=== PATIENT | male | born 1975 | race Caucasian/White ===

== ENCOUNTER 2018-06-16 08:21 | Emergency (ER) | payer MEDICAID, OTHER, SELFPAY ==
[2018-06-16] MEDS: ASPIRIN 81 MG CHEW TABLET PO (08:45)
[2018-06-16] MEDS: NITROGLYCERIN 0.4 MG SUBL TABLET SL (08:50)
[2018-06-16] MEDS: ALBUTEROL SULFATE 2.5 MG/0.5 ML INH NEB SOLN INH ×4 (09:01→11:37)
[2018-06-16 09:35] LABS: VENOUS BASE EXCESS -2.8 (-2.0-2.0); VENOUS O2 SATURATION 83.6 % (60.0-80.0); VENOUS PARTIAL PRESSURE CO2 48.7 mmHg (38.0-50.0); VENOUS PH 7.311 UNITS (7.330-7.430); VENOUS STANDARD HCO3 21.8 MEQ/L; VENOUS TOTAL CO2 25.5 MEQ/L (24.0-28.0)
[2018-06-16 09:43] LABS: BASO # 0.1 10^3/uL (0.0-0.2); BASO % 0.9 % (0.0-1.0); EOS # 0.5 10^3/uL (0.0-0.50); EOS % 4.2 % (0.0-3.0); HEMATOCRIT 49.3 % (42.0-52.0); HEMOGLOBIN 17.1 g/dl (13.5-17.5); IMMATURE GRANULOCYTE % 0.6 % (0-3.0); LYMPH # 2.3 10^3/uL (1.5-4.5); LYMPH % 19.7 % (24.0-44.0); MEAN CORPUSCULAR HEMOGLOBIN 30.7 pg (27.0-33.0); MEAN CORPUSCULAR HGB CONC 34.7 g/dl (32.0-36.5); MEAN CORPUSCULAR VOLUME 88.5 fl (80.0-96.0); MONO # 0.7 10^3/uL (0.0-0.8); MONO % 6.2 % (0.0-5.0); NEUTROPHILS # 7.9 10^3/uL (1.8-7.7); NEUTROPHILS % 68.4 % (36.0-66.0); PLATELET COUNT, AUTOMATED 389 10^3/uL (150-450); RED BLOOD COUNT 5.57 10^6/uL (4.30-6.10); RED CELL DISTRIBUTION WIDTH 12.9 % (11.5-14.5); WHITE BLOOD COUNT 11.5 10^3/uL (4.0-10.0)
[2018-06-16] MEDS: LABETALOL HCL 100 MG/20 ML VIAL IV (10:15)
[2018-06-16 11:10] LABS: INR 0.89; PROTHROMBIN TIME 12.1 SECONDS (12.1-14.4)
[2018-06-16] MEDS: TUSSICAPS ER 10/8MG CAPSULE PO (11:18)
[2018-06-16 11:41] LABS: ALBUMIN 3.9 GM/DL (3.2-5.2); ALBUMIN/GLOBULIN RATIO 1.05 (1.00-1.93); ALKALINE PHOSPHATASE 56 U/L (45-117); ALT/SGPT 25 U/L (12-78); ANION GAP 7 MEQ/L (8-16); AST/SGOT 19 U/L (7-37); BILIRUBIN,DIRECT < 0.1 MG/DL (0.0-0.2); BILIRUBIN,TOTAL 0.3 MG/DL (0.2-1.0); BLOOD UREA NITROGEN 15 MG/DL (7-18); CARBON DIOXIDE LEVEL 25 MEQ/L (21-32); CHLORIDE LEVEL 107 MEQ/L (98-107); CPK CREATINE PHOSPHOKINASE 223 U/L (39-308); CREATININE FOR GFR 1.09 MG/DL (0.70-1.30); GLOMERULAR FILTRATION RATE > 60.0 (>60); GLUCOSE, FASTING 105 MG/DL (70-100); LIPASE 89 U/L (73-393); MB/CK RELATIVE INDEX 1.84 (< OR =4); NT-PRO BNP 238 PG/ML (<125); POTASSIUM SERUM 4.4 MEQ/L (3.5-5.1); SODIUM LEVEL 139 MEQ/L (136-145); TOTAL PROTEIN 7.6 GM/DL (6.4-8.2); TROPONIN I < 0.02 NG/ML (< 0.10)
[2018-06-16] MEDS: predniSONE 20 MG TAB PO (12:18)
== END 2018-06-16 13:13 | disposition home or self-care (01) ==
LOC: M ED 08:21
DX: I10 Essential (primary) hypertension (principal); B34.8 Other viral infections of unspecified site; B34.1 Enterovirus infection, unspecified; R06.2 Wheezing; R06.02 Shortness of breath; R05 Cough; F17.200 Nicotine dependence, unspecified, uncomplicated; Z88.0 Allergy status to penicillin
CPT/HCPCS: 71045

== ENCOUNTER 2018-11-13 14:17 | Emergency (ER) | payer MEDICAID, MEDICARE, OTHER, SELFPAY ==
[~2018-11-13] VITALS: Ht 172.7 cm; Wt 102.3 kg
[~2018-11-13 14:17] MED LIST: ALBU83IN NEB; CHLO125TA PO; NEBUMIS2 XX; PRED20TA PO; TUSS1CAP5 PO; VENTAER INH
[2018-11-13] MEDS ORDERED: IPRATROPIUM 0.5MG/ALBUTEROL 2.5MG INH SOL UD 3ML (DUONEB)(J7620) NEB ONE (15:30)
[2018-11-13] MEDS ORDERED: hydroCHLOROthiazide 12.5 MG CAPSULE PO ONE (15:30)
[2018-11-13] MEDS ORDERED: LISINOPRIL 20 MG TAB PO ONE (15:30)
[2018-11-13] MEDS ORDERED: ASPIRIN 81 MG CHEW TABLET PO ONE (15:30)
[2018-11-13 15:40] VITALS: BP 194/136
[2018-11-13 15:55] LABS: BASO # 0.1 10^3/uL (0.0-0.2); BASO % 0.6 % (0.0-1.0); EOS # 0.3 10^3/uL (0.0-0.50); EOS % 2.5 % (0.0-3.0); HEMATOCRIT 50.9 % (42.0-52.0); HEMOGLOBIN 17.5 g/dl (13.5-17.5); LYMPH # 3.4 10^3/uL (1.5-4.5); LYMPH % 25.5 % (24.0-44.0); MEAN CORPUSCULAR HEMOGLOBIN 30.1 pg (27.0-33.0); MEAN CORPUSCULAR HGB CONC 34.4 g/dl (32.0-36.5); MEAN CORPUSCULAR VOLUME 87.5 fl (80.0-96.0); MONO # 0.8 10^3/uL (0.0-0.8); MONO % 5.9 % (0.0-5.0); NEUTROPHILS # 8.7 10^3/uL (1.8-7.7); NEUTROPHILS % 65.3 % (36.0-66.0); PLATELET COUNT, AUTOMATED 373 10^3/uL (150-450); RED BLOOD COUNT 5.82 10^6/uL (4.30-6.10); WHITE BLOOD COUNT 13.3 10^3/uL (4.0-10.0)
--- NOTE | 2018-11-13 16:28 | REP ---
Clinical: Acute chest pain . Comparison: 06/16/2018 . Technique: PA and lateral. Findings: The mediastinum and cardiac silhouette are normal. The lung shepard are clear and without acute consolidation, effusion, or pneumothorax. The skeletal structures are intact and normal. Impression: 1. No acute cardiopulmonary process. Electronically Signed by Garrett Matias MD 11/13/2018 04:20 P
[2018-11-13] MEDS ORDERED: IBUPROFEN 600 MG TAB PO ONE (16:30)
[2018-11-13 16:33] LABS: BLOOD UREA NITROGEN 17 MG/DL (7-18); CALCIUM LEVEL 9.1 MG/DL (8.5-10.1); CARBON DIOXIDE LEVEL 26 MEQ/L (21-32); CHLORIDE LEVEL 107 MEQ/L (98-107); CPK CREATINE PHOSPHOKINASE 268 U/L (39-308); CREATININE FOR GFR 1.29 MG/DL (0.70-1.30); GLOMERULAR FILTRATION RATE > 60.0 (>60); GLUCOSE, FASTING 90 MG/DL (70-100); MB/CK RELATIVE INDEX 0.86 (< OR =4); POTASSIUM SERUM 4.3 MEQ/L (3.5-5.1); SODIUM LEVEL 140 MEQ/L (136-145); TROPONIN I < 0.02 NG/ML (< 0.10)
[2018-11-13] MEDS ORDERED: LISI20TA PO (16:49)
[2018-11-13] MEDS ORDERED: TRAM50TA2 PO (16:52)
[2018-11-13] MEDS ORDERED: PROAAER10 INH (16:52)
[2018-11-13 17:11] VITALS: BP 189/97
--- NOTE | 2018-11-13 21:20 | ECGEPIP ---
Stationary ECG Study [facility] - ED Test Date: 2018-11-13 Pat Name: CHE GARCIA Department: Room: - Gender: M Ux Consultant: [facility] : 1975 Requested By: THOMAS VALDIVIA Order Number: [id number] Reading MD: Karen Jamison Measurements Intervals [place] Rate: 68 P: 9 NM: 186 QRS: 18 QRSD: 103 T: -37 QT: 392 QTc: 419 Interpretive Statements SINUS RHYTHM MODERATE T-WAVE ABNORMALITY, CONSIDER ISCHEMIA DECREASED RATE 06/16/18 Electronically Signed On 11-13-2018 21:20:14 EDT by Karen Jamison
== END 2018-11-13 17:23 | disposition home or self-care (01) ==
LOC: M ED 14:17
DX: J45.909 Unspecified asthma, uncomplicated (principal); K08.89 Other specified disorders of teeth and supporting structures; I10 Essential (primary) hypertension; F17.200 Nicotine dependence, unspecified, uncomplicated; Z88.0 Allergy status to penicillin